=== PATIENT | male | born 1945 | race Caucasian/White ===

== ENCOUNTER 2020-07-08 14:23 | Emergency (ER) | payer OTHER ==
[~2020-07-08] VITALS: Ht 185.4 cm; Wt 86.2 kg
[2020-07-08] MEDS ORDERED: SODIUM CHLORIDE FLUSH 10ML SYR IVF ONE (15:00)
[2020-07-08 15:30] LABS: BASOPHILS % (AUTO) 1 % (0-1); EOSINOPHILS % (AUTO) 2 % (1-7); LYMPHOCYTES % (AUTO) 29 % (22-44); MEAN CORPUSCULAR HEMOGLOBIN 34.7 pg (27.5-34.5); MEAN CORPUSCULAR HGB CONC 34.9 g/dL (33.2-36.2); MEAN PLATELET VOLUME 7.6 fL (7.4-10.4); MONOCYTES % (AUTO) 12 % (2-9); NEUTROPHILS % (AUTO) 57 % (42-75); PLATELET COUNT 190 x10^3/uL (130-400); RED BLOOD COUNT 4.52 x10^6/uL (4.38-5.82); RED CELL DISTRIBUTION WIDTH 13.4 % (9.4-14.8)
[2020-07-08 15:32] LABS: MD NO
[2020-07-08 15:39] LABS: ANION GAP 5 mmol/L (5-15); CALCIUM 8.6 mg/dL (8.5-10.1); CHLORIDE 106 mmol/L (98-107)
[2020-07-08 15:41] LABS: CREATININE 1.31 mg/dL (0.7-1.3)
--- NOTE | 2020-07-08 16:05 | NUR ---
18 FR ROMANO CATHETER INSERTED WITH SOME RESISTANCE.
--- NOTE | 2020-07-08 16:45 | NUR ---
5000 mL urine output so far via neal catheter
--- NOTE | 2020-07-08 17:25 | NUR ---
UA collected and sent to lab
[2020-07-08 18:00] LABS: MICROSCOPIC AUTO
--- NOTE | 2020-07-08 18:26 | NUR ---
Pt will follow up with urologist. Agrees with and understands discharge plan and instructions.
--- NOTE | 2020-07-08 18:26 | NUR ---
Leg bag applied.
[2020-07-08 18:33] VITALS: BP 167/89
== END 2020-07-08 19:02 | disposition home or self-care (01) ==
LOC: ED 18:44
DX: N40.1 Benign prostatic hyperplasia with lower urinary tract symptoms (principal); R33.8 Other retention of urine; I10 Essential (primary) hypertension; Z87.891 Personal history of nicotine dependence
CPT/HCPCS: 36415; 51702; 80048; 81001; 82040; 85025; 99283